=== PATIENT | male | born 1960 | race Caucasian/White ===

== ENCOUNTER → 2020-03-05 16:00 | Outpatient (CLI) | payer MEDICARE, MEDICAID, SELFPAY ==
[2020-03-08 12:11] LABS: COVID19 Sendout Not Detected (Not Detect)
== END ==
PROVIDERS: Visit Provider Physician Assistant
DX: Z11.59 Encounter for screening for other viral diseases (principal)
CPT/HCPCS: 87635

== ENCOUNTER 2020-03-08 06:37 | Day surgery (SDC) | payer MEDICARE, MEDICAID, SELFPAY ==
[2020-03-08 07:14] VITALS: BP 149/83; PULSE 87; RESP 16; TEMP 36.6; O2SAT 98; BMI 25.7
[2020-03-08] MEDS: CATARACT EYE COMPOUND (10 DROPS/SYRINGE) 3 DROPS EYE-OP (07:18)
[2020-03-08] MEDS: PROPARACAINE 0.5% OPHTH SOL 2 DROPS EYE-OP (07:18)
[2020-03-08 08:09] LABS: COVID19 -Nasal RAPID Negative (Negative)
--- NOTE | 2020-03-08 08:52 | P.OP_ITS ---
Operative Date/Time/Diagnoses Pre-op diagnosis: Nuclear Cataract Left eye Post-op diagnosis: same Procedure & Clinicians Same procedure as scheduled: Yes Surgeon: Beny Gallegos Anesthesia Type: MAC +/- and Sedation Operative Notes Procedure in detail: Patient brought to the operating suite. Tetracaine drops placed in the left eye. Patient was prepped and draped in sterile manner. Wire lid speculum was placed in the eye. Betadine drops were placed on the eye. This was irrigated. Lidocaine jelly was placed on the eye. A paracentesis port was created with a side-port blade. 0.1 mL 1% preservative free lidocaine was injected into the anterior chamber. The anterior chamber was deepened with viscoelastic. 2.6 mm keratome was used to create a temporal clear corneal incision. Cystotome and Utrata forceps were used to create continuous tear capsulorrhexis. Balanced salt solution was used to hydro dissect the nucleus. The phacoemulsification handpiece was inserted and the nucleus was removed using the stop and chop technique. The irrigation aspiration handpiece was inserted and the remaining cortex was removed. Anterior chamber was deepened with viscoe lastic. An Roa ZCB00 intraocular lens with a power of 19.0 was injected into the capsular bag. Irrigation aspiration handpiece was inserted and the remaining viscoelastic was removed. Incision was hydrated with balanced salt solution and found to be leak free with pressure with Weck-Alexandrea sponges. 0.1 mL Vigamox injected anterior chamber. 0.3 mL Kenalog 10 mg was injected subconjunctivally. Lid speculum was removed. The patient left the operating room in excellent condition. Complications: none Post-operative Condition: stable Disposition: same day surgery
--- NOTE | 2020-03-08 08:52 | PM.PREOP ---
Pre-operative Note Interval Note History & Physical reviewed/Exam performed by Physician: Yes Changes to H&P: No
[2020-03-08] MEDS: LIDOCAINE JELLY 2% 5 ML 1 APPLIC TOP (09:08)
[2020-03-08] MEDS: CHONDROIDTIN/SOD HYALURONATE 1.05 ML SYRINGE INTRAOCULA (09:08)
[2020-03-08] MEDS: TRIAMCINOLONE 50 MG/5 ML VIAL INJ (09:09)
[2020-03-08] MEDS: PHENYLEPHRINE/LIDOCAINE VIAL (OR) 0.2 ML EYE-OP (09:09)
[2020-03-08] MEDS: MOXIFLOXACIN INJ 5 MG/ML VIAL EYE-OP (09:09)
[2020-03-08] MEDS: TETRACAINE 0.5% OPHTH DROPS 4 ML 2 DROPS EYE-OP (09:10)
[2020-03-08] MEDS: BALANCED SALT IRRIG SOLN NO.2 500 ML, EPINEPHrine 1 MG IRR (09:10)
[2020-03-08 09:29] VITALS: BP 124/75; PULSE 74; RESP 14; TEMP 37; O2SAT 98
[2020-03-08 09:56] VITALS: BP 128/76; PULSE 73; RESP 14; O2SAT 98
== END 2020-03-08 10:00 | disposition home or self-care (01) ==
PROVIDERS: Referring Provider Ophthalmology; Visit Provider Ophthalmology
PROC: (CPT 66984; principal; 2020-03-08 07:45)
DX: H25.12 Age-related nuclear cataract, left eye (principal); Z11.59 Encounter for screening for other viral diseases
CPT/HCPCS: 66984; 87635; J0171; J2250; J3301

== ENCOUNTER → 2020-03-19 10:39 | Outpatient (CLI) | payer MEDICARE, MEDICAID, SELFPAY ==
[2020-03-20 16:13] LABS: COVID19 Sendout Not Detected (Not Detect)
== END ==
PROVIDERS: Visit Provider Physician Assistant
DX: Z11.59 Encounter for screening for other viral diseases (principal)
CPT/HCPCS: 87635

== ENCOUNTER 2020-03-22 06:35 | Day surgery (SDC) | payer MEDICARE, MEDICAID, SELFPAY ==
[2020-03-22] MEDS: PROPARACAINE 0.5% OPHTH SOL 2 DROPS EYE-OP (07:14)
[2020-03-22] MEDS: CATARACT EYE COMPOUND (10 DROPS/SYRINGE) 3 DROPS EYE-OP (07:15)
[2020-03-22 07:23] VITALS: BP 149/87; PULSE 81; RESP 16; TEMP 36.3; O2SAT 97; BMI 25.7
--- NOTE | 2020-03-22 07:36 | PM.PREOP ---
Pre-operative Note Interval Note History & Physical reviewed/Exam performed by Physician: Yes Changes to H&P: No
--- NOTE | 2020-03-22 07:36 | PM.OP.1 ---
Operative Date/Time/Diagnoses Pre-op diagnosis: Nuclear cataract right eye Procedure & Clinicians Procedure: Cataract Surgery Same procedure as scheduled: Yes Surgeon: Beny Gallegos Anesthesia Type: MAC +/- and Sedation Operative Notes Procedure in detail: Patient brought to the operating suite. Tetracaine drops placed in the right eye. Patient was prepped and draped in sterile manner. Wire lid speculum was placed in the eye. Betadine drops were placed on the eye. This was irrigated. Lidocaine jelly was placed on the eye. A paracentesis port was created with a side-port blade. 0.1 mL 1% preservative free lidocaine was injected into the anterior chamber. The anterior chamber was deepened with viscoelastic. 2.6 mm keratome was used to create a temporal clear corneal incision. Cystotome and Utrata forceps were used to create continuous tear capsulorrhexis. Balanced salt solution was used to hydro dissect the nucleus. The phacoemulsification handpiece was inserted and the nucleus was removed using the stop and chop technique. The irrigation aspiration handpiece was inserted and the remaining cortex was removed. Anterior chamber was deepened with viscoelastic. An Roa ZCB00 intraocular lens with a power of 20.0 was injected into the capsular bag. Irrigation aspiration handpiece was inserted and the remaining viscoelastic was removed. Incision was hydrated with balanced salt solution and found to be leak free with pressure with Weck-Alexandrea sponges. 0.1 mL Vigamox injected anterior chamber. 0.3 mL Kenalog 10 mg was injected subconjunctivally. Lid speculum was removed. The patient left the operating room in excellent condition. Complications: none Post-operative Condition: stable Disposition: same day surgery
[2020-03-22] MEDS: MOXIFLOXACIN INJ 5 MG/ML VIAL EYE-OP (07:58)
[2020-03-22] MEDS: CHONDROIDTIN/SOD HYALURONATE 1.05 ML SYRINGE INTRAOCULA (07:58)
[2020-03-22] MEDS: LIDOCAINE JELLY 2% 5 ML 1 APPLIC TOP (07:58)
[2020-03-22] MEDS: PHENYLEPHRINE/LIDOCAINE VIAL (OR) 0.2 ML EYE-OP (07:59)
[2020-03-22] MEDS: TRIAMCINOLONE 50 MG/5 ML VIAL INJ (07:59)
[2020-03-22] MEDS: BALANCED SALT IRRIG SOLN NO.2 500 ML, EPINEPHrine 1 MG IRR (07:59)
[2020-03-22] MEDS: TETRACAINE 0.5% OPHTH DROPS 4 ML 2 DROPS EYE-OP (07:59)
[2020-03-22 08:12] VITALS: BP 118/74; PULSE 76; RESP 12; TEMP 36.7; O2SAT 98
== END 2020-03-22 08:25 | disposition home or self-care (01) ==
PROVIDERS: Referring Provider Ophthalmology; Visit Provider Ophthalmology
PROC: (CPT 66984; principal; 2020-03-22 07:45)
DX: H25.11 Age-related nuclear cataract, right eye (principal); E11.9 Type 2 diabetes mellitus without complications; F17.210 Nicotine dependence, cigarettes, uncomplicated
CPT/HCPCS: 66984; J0171; J2250; J3301

== ENCOUNTER 2021-05-18 13:49 | Emergency (ER) | payer MEDICARE, MEDICAID, SELFPAY ==
[2021-05-18 14:02] VITALS: BP 161/99; PULSE 78; RESP 16; TEMP 36.5; O2SAT 100; BMI 25.7
== END 2021-05-18 17:27 | disposition left against medical advice (07) ==
PROVIDERS: Emergency Provider Emergency Medicine
DX: K08.89 Other specified disorders of teeth and supporting structures (principal)
CPT/HCPCS: 99281

== ENCOUNTER 2021-05-19 10:40 | Emergency (ER) | payer MEDICARE, MEDICAID, SELFPAY ==
[2021-05-19 10:52] VITALS: BP 140/79; PULSE 94; RESP 20; TEMP 36.6; O2SAT 100
[2021-05-19] MEDS: IBUPROFEN 400 MG TABLET 800 MG PO (10:59)
[2021-05-19] MEDS: ACETAMINOPHEN 325 MG TABLET 975 MG PO (10:59)
--- NOTE | 2021-05-19 13:10 | ED.DENTAL ---
HPI - Dental/Oral General Chief complaint: Dental/Oral Stated complaint: bad tooth ache Time Seen by Provider: 05/19/21 12:52 Source: patient Mode of arrival: Ambulatory Limitations: no limitations History of Present Illness HPI Narrative: The patient developed right upper dental pain about 1 week ago. The pain has spread throughout his upper gum. He has mild swelling to his upper lip. He has no lower dental pain. He has right anterior neck pain. He denies dysphagia or sore throat. He denies fever chills. He has no chest pain. He is a smoker. He has a history of dental problems. He has no headache, sore throat, cough or dyspnea Related Data Previous Rx's Medication Instructions Recorded amoxicillin 500 mg capsule 500 mg PO TID 10 Days #30 cap 05/19/21 Allergies Allergy/AdvReac Type Severity Reaction Status Date / Time No Known Drug Allergies Allergy Verified 05/19/21 10:55 Review of Systems Review of Systems ROS Unobtainable: All systems reviewed & are unremarkable except as noted in HPI and below Patient History Social History household members: none Smoking Status: Current every day smoker alcohol intake: current Smoking Status: Current every day smoker alcohol intake frequency: a few times a month Substance Use Type: marijuana Exam Initial Vital Signs Initial Vital Signs: Vital Signs Temperature 97.8 F 05/19/21 10:52 Pulse Rate 94 H 05/19/21 10:52 Respiratory Rate 20 05/19/21 10:52 Blood Pressure 140/79 05/19/21 10:52 Pulse Oximetry 100 05/19/21 10:52 Const General: cooperative, healthy appearing and comfortable [facility] Head: other (Slight edema to the upper lip.) Face and sinus: sinuses nontender Mouth: tongue normal, oropharynx normal and other (Gingivitis in his upper gum. Dental abscess at tooth 8.) Throat: posterior oropharynx normal Cardio Rate: regular rate Rhythm: regular rhythm Heart Sounds: S1 normal, S2 normal and no murmurs Course Course Course Narrative: The patient has gingivitis as well as a visible abscess at tooth 8. He has no significant facial edema. He has started amoxicillin. He is advised to follow-up with a dentist. Orders Ordered: Discontinued Medications Acetaminophen (Acetaminophen 325 Mg Tablet) 975 mg PO NOW ONE Stop: 05/19/21 10:57 Last Admin: 05/19/21 10:59 Dose: 975 mg Documented by: FEDERICA Ibuprofen (Ibuprofen 400 Mg Tablet) 800 mg PO NOW ONE Stop: 05/19/21 10:57 Last Admin: 05/19/21 10:59 Dose: 800 mg Documented by: FEDERICA Vital Signs Vital signs: Vital Signs - 8 hr 05/19/21 10:52 Temperature 97.8 F Pulse Rate 94 H Respiratory Rate 20 Blood Pressure 140/79 Pulse Oximetry 100 Discharge Plan Departure Patient Disposition: Home Clinical Impression: Dental abscess, Acute gingivitis Instructions: Tooth Abscess Activity Restrictions/Additional Instructions: Aleve 2 tablets 2 times daily as needed for pain. Amoxicillin 3 times daily for 10 days. The prescription has been forwarded to your pharmacy. I would recommend follow-up with a dentist in 2-3 weeks. Return as needed. Prescriptions: New amoxicillin 500 mg capsule 500 mg PO TID 10 Days Qty: 30 0RF
[2021-05-19] MEDS: AMOXICILLIN 250 MG CAPSULE 500 MG PO (13:18)
== END 2021-05-19 13:23 | disposition home or self-care (01) ==
PROVIDERS: Emergency Provider Emergency Medicine
DX: K04.7 Periapical abscess without sinus (principal); K05.00 Acute gingivitis, plaque induced
CPT/HCPCS: 99283

== ENCOUNTER 2022-03-30 17:47 | Emergency (ER) | payer MEDICARE, MEDICAID, SELFPAY ==
[2022-03-30] VITALS (7 sets, daily range): BP systolic 119–164; BP diastolic 67–80; PULSE 85–100; RESP 22; TEMP 37.7; O2SAT 96–99; BMI 25.7
--- NOTE | 2022-03-30 18:02 | DI.RAD.S_ITS ---
PROCEDURE: XR CHEST 1V INDICATIONS: suspected sepsis TECHNIQUE: One view of the chest was acquired. COMPARISON: None. FINDINGS: Surgical changes and devices: None. Lungs and pleura: Lungs are clear. No pleural effusions or pneumothorax. Mediastinum: Mediastinal contours appear normal. Heart size is normal. Bones and chest wall: No suspicious bony lesions. Overlying soft tissues appear unremarkable. IMPRESSION: No acute cardiopulmonary abnormality. Dictated by: Refugio Chong M.D. on 03/30/2022 at 20:13 Approved by: Refugio Chong M.D. on 03/30/2022 at 20:13
--- NOTE | 2022-03-30 18:13 | DI.RAD.S_ITS ---
PROCEDURE: XR TIBIA FUBULA RT 2V INDICATIONS: wound, infection, cut on beach TECHNIQUE: 2 views of the tibia and fibula were acquired. COMPARISON: None. FINDINGS: Bones: No fractures or dislocations. No suspicious bony lesions. Soft tissues: No suspicious soft tissue calcifications or masses. No radiopaque foreign body is identified. Trace calcification at the interosseous membrane versus vascular calcifications. IMPRESSION: No acute osseous abnormality. Dictated by: Refugio Chong M.D. on 03/30/2022 at 20:13 Approved by: Refugio Chong M.D. on 03/30/2022 at 20:14
--- NOTE | 2022-03-30 18:32 | ED.WOUNDLAC ---
HPI - Wound/Laceration <Bala Murguia PA-C - Last Filed: 03/30/22 20:25> General Chief Complaint: Wound/Laceration Stated Complaint: R foot pain, changing colors, swollen, infected Time Seen by Provider: 03/30/22 18:18 Source: patient Mode of arrival: Family Vehicle History of Present Illness HPI narrative: The patient is a 61-year-old male who presents to the emergency room today with complaint of right-sided lower middle ankle pain that started on Saturday last week. Admits to current his ankle while on vacation in [place] on Saturday or Saturday. States that he noticed swelling on Saturday and it has increased with the ankle is very painful right now he can barely walk on it. Denies any chest pain shortness of breath fever or vomiting. Does state he has had some nausea. Has not taken any pain medicine or antibiotics within condition at this time. Related Data Previous Rx's Medication Instructions Recorded doxycycline hyclate 100 mg tablet 100 mg PO BID #14 tabs 03/30/22 doxycycline hyclate 100 mg tablet 100 mg PO BID 7 days #14 tabs 03/30/22 Allergies Allergy/AdvReac Type Severity Reaction Status Date / Time No Known Drug Allergies Allergy Verified 03/30/22 18:01 Review of Systems <Bala Murguia PA-C - Last Filed: 03/30/22 20:25> Review of Systems Narrative: R.O.S.: General: No fever, chills or fatigue. Cardiovascular: No chest pain or palpitations Respiratory: No S.O.B. HEENT: No congestion, ear pain, rhinorrhea, sore throat or tinnitus Gastrointestinal: No nausea or vomiting : No urinary concerns Skin: And swelling to the right ankle. Musculoskeletal: No pain in muscles or joints, no limitation of range of motion, no paresthesia or numbness. ?? Neurological: Awake, alert and in not apparent distress. No Headaches, changes in vision or other related neurological concerns. Patient History <Bala Murguia PA-C - Last Filed: 03/30/22 20:25> Social History household members: none Smoking Status: Current every day smoker alcohol intake: current Smoking Status: Current every day smoker alcohol intake frequency: a few times a month Substance Use Type: marijuana Exam <Bala Murguia PA-C - Last Filed: 03/30/22 20:25> Narrative Exam Narrative: Physical Exam: ? General: normal appearance, well developed, well nourished, alert, and awake. Not in acute distress. ? Head: Normocephalic, no lesions. Chest: Lungs CTAB, no rales, rhonchi or wheezes. ?? Heart: RRR, no murmurs, rubs or gallops. Eyes: PERRLA, EOM's full, conjunctivae clear. ? Neuro: Physiological, no localizing findings, CN3-12 intact. ?? Extremities: Warm, well perfused, FROM, no deformities, no edema. ?? Skin: Patient has swelling erythema and tenderness to the right medial malleolus area. ?The ankle area has erythema to his extend from the medial malleoli area to the proximal 1st and 2nd metatarsal area. The erythema and tenderness also extends to the inferior malleolar area proximal to the arch. Erythema swelling also extends the posterior malleolar area. PSYCHIATRIC: The mood is good, no blunted affect. Speech is clear. Thought process is linear, thought content is appropriate. The voice is without significant inflection. Gastrointestinal: Soft; NT; ND; Pos BS with Neg. rebound tenderness. No scars or major deformities noted on Visual Inspection. Initial Vital Signs Initial Vital Signs: Vital Signs Temperature 99.9 F H 03/30/22 17:57 Pulse Rate 100 H 03/30/22 17:57 Respiratory Rate 22 03/30/22 17:57 Blood Pressure 119/67 03/30/22 17:57 Pulse Oximetry 99 03/30/22 17:57 Oxygen Delivery Method 03/30/22 17:57 <Brian Durand DO - Last Filed: 03/30/22 22:36> Initial Vital Signs Initial Vital Signs: Vital Signs Temperature 99.9 F H 03/30/22 17:57 Pulse Rate 100 H 03/30/22 17:57 Respiratory Rate 22 03/30/22 17:57 Blood Pressure 119/67 03/30/22 17:57 Pulse Oximetry 99 03/30/22 17:57 Oxygen Delivery Method 03/30/22 17:57 Course <Bala Murguia PA-C - Last Filed: 03/30/22 20:25> Orders Ordered: ED Orders 03/30/22 18:02 XR chest 1V Stat RT Consult Eval and Treat NOW 03/30/22 18:13 XR tibia fibula RT 2V Stat 03/30/22 18:50 Complete Blood Count AUTO DIFF Stat Comprehensive Metabolic Panel Stat Lactate (Lactic Acid) Stat Lipase Stat Procalcitonin Stat 03/30/22 19:01 EKG-12 Lead Stat 03/30/22 19:45 Blood Culture Stat Discontinued Medications Sodium Chloride (Normal Saline 0.9%) 1,000 mls @ 1,000 mls/hr IV BOLUS ONE Stop: 03/30/22 19:01 Last Infusion: 03/30/22 20:40 Dose: 0 mls/hr Documented By: Admin: 03/30/22 19:17 Dose: 1,000 mls/hr Documented By: DELROY Ketorolac Tromethamine (Ketorolac 30 Mg/Ml Vial) 30 mg IV NOW ONE Stop: 03/30/22 18:29 Last Admin: 03/30/22 19:12 Dose: 30 mg Documented By: DELROY Vital Signs Vital signs: Vital Signs - 8 hr 03/30/22 17:57 03/30/22 18:51 03/30/22 18:52 Temperature 99.9 F H Pulse Rate 100 H 91 H Respiratory Rate 22 Blood Pressure 119/67 136/73 Pulse Oximetry 99 99 Oxygen Delivery Method Room Air Room Air 03/30/22 19:00 03/30/22 19:00 03/30/22 19:30 Temperature Pulse Rate 92 H Respiratory Rate Blood Pressure 132/74 144/74 H Pulse Oximetry 96 Oxygen Delivery Method Room Air 03/30/22 19:30 03/30/22 20:00 03/30/22 20:00 Temperature Pulse Rate 88 88 Respiratory Rate Blood Pressure 151/72 H Pulse Oximetry 97 98 Oxygen Delivery Method Room Air 03/30/22 20:30 03/30/22 20:30 Temperature Pulse Rate 85 Respiratory Rate Blood Pressure 164/80 H Pulse Oximetry 99 Oxygen Delivery Method Room Air <Brian Durand DO - Last Filed: 03/30/22 22:36> Orders Ordered: ED Orders 03/30/22 18:02 XR chest 1V Stat RT Consult Eval and Treat NOW 03/30/22 18:13 XR tibia fibula RT 2V Stat 03/30/22 18:50 Complete Blood Count AUTO DIFF Stat Comprehensive Metabolic Panel Stat Lactate (Lactic Acid) Stat Lipase Stat Procalcitonin Stat 03/30/22 19:01 EKG-12 Lead Stat 03/30/22 19:45 Blood Culture Stat Discontinued Medications Sodium Chloride (Normal Saline 0.9%) 1,000 mls @ 1,000 mls/hr IV BOLUS ONE Stop: 03/30/22 19:01 Last Infusion: 03/30/22 20:40 Dose: 0 mls/hr Documented By: Admin: 03/30/22 19:17 Dose: 1,000 mls/hr Documented By: DELROY Ketorolac Tromethamine (Ketorolac 30 Mg/Ml Vial) 30 mg IV NOW ONE Stop: 03/30/22 18:29 Last Admin: 03/30/22 19:12 Dose: 30 mg Documented By: DELROY Vital Signs Vital signs: Vital Signs - 8 hr 03/30/22 17:57 03/30/22 18:51 03/30/22 18:52 Temperature 99.9 F H Pulse Rate 100 H 91 H Respiratory Rate 22 Blood Pressure 119/67 136/73 Pulse Oximetry 99 99 Oxygen Delivery Method Room Air Room Air 03/30/22 19:00 03/30/22 19:00 03/30/22 19:30 Temperature Pulse Rate 92 H Respiratory Rate Blood Pressure 132/74 144/74 H Pulse Oximetry 96 Oxygen Delivery Method Room Air 03/30/22 19:30 03/30/22 20:00 03/30/22 20:00 Temperature Pulse Rate 88 88 Respiratory Rate Blood Pressure 151/72 H Pulse Oximetry 97 98 Oxygen Delivery Method Room Air 03/30/22 20:30 03/30/22 20:30 Temperature Pulse Rate 85 Respiratory Rate Blood Pressure 164/80 H Pulse Oximetry 99 Oxygen Delivery Method Room Air MDM - Wound/Laceration <Bala Murguia PA-C - Last Filed: 03/30/22 20:25> Lab Data Result diagrams: 03/30/22 18:50 03/30/22 18:50 Labs: Lab Results 03/30/22 03/30/22 03/30/22 Range/Units 18:50 18:50 18:50 WBC 14.4 H (4.5-11.0) X10^3/uL RBC 4.54 (4.5-5.9) X10^6/uL Hgb 13.9 (13.5-17.5) g/dL Hct 41.6 (41-53) % MCV 91.6 (80-100) fL MCH 30.6 (26-34) PG MCHC 33.4 (30-36) % RDW 14.8 (11.6-14.8) % Plt Count 187 (150-400) X10^3/uL Neut % (Auto) 81.3 H (50-75) % Lymph % (Auto) 10.4 L (25-40) % Bradford % (Auto) 7.7 (3-14) % Eos % (Auto) 0.1 L (2-4) % Baso % (Auto) 0.5 (0-2) % Neut # (Auto) 12923 H (0767-4801) /uL Lymph # (Auto) 1500 (7198-4359) /uL Bradford # (Auto) 1100 H (0-900) /uL Eos # (Auto) 0 (0-450) /uL Baso # (Auto) 100 (0-100) /uL Sodium 136 L (137-145) mmol/L Potassium 3.9 (3.4-5.1) mmol/L Chloride 101 (98-107) mmol/L Carbon Dioxide 26 (22-32) mmol/L BUN 8 L (9-20) mg/dL Creatinine 0.82 (0.66-1.25) mg/dL Estimated GFR > 60 (>60) mL/min BUN/Creatinine Ratio 9.8 (6-22) Glucose 144 H (80-110) mg/dL Lactate 1.0 (0.7-2.1) mmol/L Calcium 8.9 (8.4-10.2) mg/dL Total Bilirubin 1.3 (0.2-1.3) mg/dL AST 18 (17-59) IU/L ALT 12 (<50) IU/L Alkaline Phosphatase 90 (38-126) U/L Total Protein 7.4 (6.3-8.2) g/dL Albumin 4.0 (3.5-5.0) g/dL Globulin 3.4 (1.7-4.1) g/dL Albumin/Globulin Ratio 1.2 (1.0-2.8) Lipase 37 (23-300) U/L Procalcitonin 0.07 (<0.5) ng/mL Imaging Data Chest x-ray: Radiologist's Impression: PROCEDURE:? XR CHEST 1V ? INDICATIONS:? suspected sepsis ? TECHNIQUE:? One view of the chest was acquired.? ? COMPARISON:? None. ? FINDINGS:? ? Surgical changes and devices:? None.? ? Lungs and pleura:? Lungs are clear.? No pleural effusions or pneumothorax.? ? Mediastinum:? Mediastinal contours appear normal.? Heart size is normal.? ? Bones and chest wall:? No suspicious bony lesions.? Overlying soft tissues appear unremarkable.? ? IMPRESSION:? No acute cardiopulmonary abnormality. ? ? ? Dictated by: Refugio Chong M.D. on 03/30/2022 at 20:13 ? ? Approved by: Refugio Chong M.D. on 03/30/2022 at 20:13 ? Extremity x-ray #1: Radiologist's Impression: PROCEDURE:? XR TIBIA FUBULA RT 2V ? INDICATIONS:? wound, infection, cut on beach ? TECHNIQUE:? 2 views of the tibia and fibula were acquired.? ? COMPARISON:? None. ? FINDINGS:? ? Bones:? No fractures or dislocations.? No suspicious bony lesions.? ? Soft tissues:? No suspicious soft tissue calcifications or masses.? No radiopaque foreign body is identified.? Trace calcification at the interosseous membrane versus vascular calcifications. ? IMPRESSION:? No acute osseous abnormality. ? ? Dictated by: Refugio Chong M.D. on 03/30/2022 at 20:13 ? ? Approved by: Refugio Chong M.D. on 03/30/2022 at 20:14 ? MDM Narrative Medical decision making narrative: Patient is 7-year-old male who presents to the emergency room today with complaint of pain redness and swelling to his right ankle this started after cutting his ankle while vacationing in [facility] last week. Labs ordered to rule out blood infection or any other urgent emergent concerns. WBC was elevated to 14. Other labs were not positive for gross urgent emergent concerns at this time. All X-rays of right lower extremity and shortness chest film were also negative any emergent concern. Discussed cellulitis abscess and in other emergency concerns patient. Antibiotics are at patient advised to return should any emergent well arise. <Brian Lanker, DO - Last Filed: 03/30/22 22:36> Lab Data Labs: Lab Results 03/30/22 03/30/22 03/30/22 Range/Units 18:50 18:50 18:50 WBC 14.4 H (4.5-11.0) X10^3/uL RBC 4.54 (4.5-5.9) X10^6/uL Hgb 13.9 (13.5-17.5) g/dL Hct 41.6 (41-53) % MCV 91.6 (80-100) fL MCH 30.6 (26-34) PG MCHC 33.4 (30-36) % RDW 14.8 (11.6-14.8) % Plt Count 187 (150-400) X10^3/uL Neut % (Auto) 81.3 H (50-75) % Lymph % (Auto) 10.4 L (25-40) % Bradford % (Auto) 7.7 (3-14) % Eos % (Auto) 0.1 L (2-4) % Baso % (Auto) 0.5 (0-2) % Neut # (Auto) 15794 H (0081-1752) /uL Lymph # (Auto) 1500 (0001-2661) /uL Bradford # (Auto) 1100 H (0-900) /uL Eos # (Auto) 0 (0-450) /uL Baso # (Auto) 100 (0-100) /uL Sodium 136 L (137-145) mmol/L Potassium 3.9 (3.4-5.1) mmol/L Chloride 101 (98-107) mmol/L Carbon Dioxide 26 (22-32) mmol/L BUN 8 L (9-20) mg/dL Creatinine 0.82 (0.66-1.25) mg/dL Estimated GFR > 60 (>60) mL/min BUN/Creatinine Ratio 9.8 (6-22) Glucose 144 H (80-110) mg/dL Lactate 1.0 (0.7-2.1) mmol/L Calcium 8.9 (8.4-10.2) mg/dL Total Bilirubin 1.3 (0.2-1.3) mg/dL AST 18 (17-59) IU/L ALT 12 (<50) IU/L Alkaline Phosphatase 90 (38-126) U/L Total Protein 7.4 (6.3-8.2) g/dL Albumin 4.0 (3.5-5.0) g/dL Globulin 3.4 (1.7-4.1) g/dL Albumin/Globulin Ratio 1.2 (1.0-2.8) Lipase 37 (23-300) U/L Procalcitonin 0.07 (<0.5) ng/mL Discharge Plan Departure Patient Disposition: Home Clinical Impression: Cellulitis, Cellulitis and abscess of left leg Instructions: DI for Cellulitis -- Adult Activity Restrictions/Additional Instructions: *You have been diagnosed with cellulitis of your right lower leg. Have ordered antibiotics to help with the infection and suggest she take antibiotics as ordered. I also advised to return to the emergency room should the infection worsens after taking antibiotics the next 2-3 days; if you develop a fever above 101 or any other emergent concerns arise. [ ] *What to do: *Please continue to take your regular medications as directed. [ ] New medication prescriptions sent to your pharmacy: [ ] [x] New medication written as a paper prescription [ ] No new medications given *Please follow up with your primary care provider in 2-3 days, call for an appointment. Let them know you were seen in the Emergency Department and that we ask that you be seen in follow up. We will electronically transmit a record of today's note if your PCP is in our system *If you do not have a primary care provider please contact the [facility] Resource line at [phone]. They will ask some questions about your medical history and help get you set up with a doctor in the community. *Return to Emergency Department if you should have any new, worsening or concerning symptoms, such as [fever greater than 101 F, shaking chills, worsening pain, persistent vomiting or other bothersome symptoms] Prescriptions: New doxycycline hyclate 100 mg tablet 100 mg PO BID Qty: 14 0RF doxycycline hyclate 100 mg tablet 100 mg PO BID 7 Days Qty: 14 0RF Visit Report Forms: Patient Portal/API <Brian Durand, DO - Last Filed: 03/30/22 22:36> Cosign ED Attending Cosignature Attestation: Dr Durand Co-Sign Statement: I was available for consultation during this patient's emergency department visit. This chart is signed by myself for administrative purposes only. I did not have direct contact with this patient during this visit. They were seen independently by the APC.
[2022-03-30 19:02] LABS: Add Manual Diff / Slide Review NO; Basophils Absolute Auto 100 /uL (0-100); Basophils Percent Auto 0.5 % (0-2); Eosinophils Absolute Auto 0 /uL (0-450); Eosinophils Percent Auto 0.1 % (2-4); Hematocrit 41.6 % (41-53); Hemoglobin 13.9 g/dL (13.5-17.5); Lymphocytes Absolute Auto 1500 /uL (1100-4500); Lymphocytes Percent Auto 10.4 % (25-40); Mean Corpuscular HGB Conc 33.4 % (30-36); Mean Corpuscular Hemoglobin 30.6 PG (26-34); Mean Corpuscular Volume 91.6 fL (80-100); Monocytes Absolute Auto 1100 /uL (0-900); Monocytes Percent Auto 7.7 % (3-14); Neutrophils Absolute Auto 11700 /uL (1500-7000); Neutrophils Percent Auto 81.3 % (50-75); Platelet Count 187 X10^3/uL (150-400); Red Blood Cell Count 4.54 X10^6/uL (4.5-5.9); Red Cell Distribution Width 14.8 % (11.6-14.8); White Blood Cell Count 14.4 X10^3/uL (4.5-11.0)
[2022-03-30 19:12] LABS: Alanine Aminotransferase 12 IU/L (<50); Albumin Globulin Ratio 1.2 (1.0-2.8); Alkaline Phosphatase 90 U/L (38-126); Aspartate Aminotransferase 18 IU/L (17-59); BUN Creatinine Ratio 9.8 (6-22); Bilirubin Total 1.3 mg/dL (0.2-1.3); Blood Urea Nitrogen 8 mg/dL (9-20); Calcium 8.9 mg/dL (8.4-10.2); Carbon Dioxide 26 mmol/L (22-32); Chloride 101 mmol/L (98-107); Estimated Glomerular Filt Rate > 60 mL/min (>60); Globulin 3.4 g/dL (1.7-4.1); Glucose 144 mg/dL (80-110); HEMOLYSIS < 15 (0-50); Lipase 37 U/L (23-300); Potassium 3.9 mmol/L (3.4-5.1); Sodium 136 mmol/L (137-145); Total Protein 7.4 g/dL (6.3-8.2)
[2022-03-30] MEDS: KETOROLAC 30 MG/ML VIAL IV (19:12)
[2022-03-30] MEDS: SODIUM CHLORIDE 0.9% 1,000 ML 1000 ML IV (19:17)
[2022-03-30 19:29] LABS: Procalcitonin 0.07 ng/mL (<0.5)
== END 2022-03-30 20:40 | disposition home or self-care (01) ==
PROVIDERS: Emergency Medicine; Emergency Provider Physician Assistant
DX: L03.115 Cellulitis of right lower limb (principal); W45.8XXA Other foreign body or object entering through skin, initial encounter; R11.0 Nausea
CPT/HCPCS: 36415; 71045; 73590; 80053; 83605; 83690; 84145; 85025; 87040; 93005; 96361; 96374; 99284; J1885

== ENCOUNTER 2022-04-19 14:53 | Emergency (ER) | payer MEDICARE, MEDICAID, SELFPAY ==
[2022-04-19 14:57] VITALS: BP 146/82; PULSE 94; RESP 18; TEMP 35.7; O2SAT 100; BMI 25.7
[2022-04-19 15:42] LABS: Add Manual Diff / Slide Review NO; Basophils Absolute Auto 0 /uL (0-100); Basophils Percent Auto 0.5 % (0-2); Eosinophils Absolute Auto 100 /uL (0-450); Eosinophils Percent Auto 1.4 % (2-4); Hematocrit 39.2 % (41-53); Hemoglobin 13.2 g/dL (13.5-17.5); Lymphocytes Absolute Auto 2500 /uL (1100-4500); Lymphocytes Percent Auto 26.8 % (25-40); Mean Corpuscular HGB Conc 33.6 % (30-36); Mean Corpuscular Hemoglobin 30.4 PG (26-34); Mean Corpuscular Volume 90.4 fL (80-100); Monocytes Absolute Auto 700 /uL (0-900); Monocytes Percent Auto 7.3 % (3-14); Neutrophils Absolute Auto 6000 /uL (1500-7000); Platelet Count 249 X10^3/uL (150-400); Red Blood Cell Count 4.33 X10^6/uL (4.5-5.9); Red Cell Distribution Width 15.2 % (11.6-14.8); White Blood Cell Count 9.3 X10^3/uL (4.5-11.0)
[2022-04-19 15:50] LABS: Lactate (Lactic Acid) 2.3 mmol/L (0.7-2.1)
[2022-04-19 15:51] LABS: Alanine Aminotransferase 21 IU/L (<50); Albumin 4.1 g/dL (3.5-5.0); Albumin Globulin Ratio 1.1 (1.0-2.8); Alkaline Phosphatase 82 U/L (38-126); Aspartate Aminotransferase 23 IU/L (17-59); BUN Creatinine Ratio 18.7 (6-22); Bilirubin Total 0.3 mg/dL (0.2-1.3); Blood Urea Nitrogen 14 mg/dL (9-20); Calcium 9.3 mg/dL (8.4-10.2); Carbon Dioxide 25 mmol/L (22-32); Chloride 103 mmol/L (98-107); Estimated Glomerular Filt Rate > 60 mL/min (>60); Globulin 3.8 g/dL (1.7-4.1); Glucose 120 mg/dL (80-110); HEMOLYSIS 16 (0-50); Potassium 3.9 mmol/L (3.4-5.1); Sodium 140 mmol/L (137-145); Total Protein 7.9 g/dL (6.3-8.2)
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
[2022-04-19 16:40] LABS: Procalcitonin 0.04 ng/mL (<0.5)
--- NOTE | 2022-04-19 16:46 | DI.RAD.S_ITS ---
PROCEDURE: XR ANKLE RT MIN 3V INDICATIONS: R ankle wound r/o osteo TECHNIQUE: 3 views of the ankle were acquired. COMPARISON: [facility], CR, XR TIBIA FIBULA RT 2V, 03/30/2022, 18:13. FINDINGS: Bones: No fractures or dislocations. No osseous erosion. No focal sclerosis. No periosteal reaction. Ankle mortise is normally aligned. No suspicious bony lesions. Soft tissues: No tibiotalar joint effusion. Achilles tendon appears normal. Arterial vascular calcifications. Wound superior to the medial malleolus, increased. IMPRESSION: No osteomyelitis demonstrated. Consider follow-up three-phase bone scan or MRI. Wound superior to the medial malleolus appears worsened. Dictated by: Refugio Chong M.D. on 04/19/2022 at 17:10 Approved by: Refugio Chong M.D. on 04/19/2022 at 17:12
[2022-04-19 17:31] LABS: C-Reactive Protein Quant 0.7 mg/dL (<1.0)
[2022-04-19 17:36] LABS: Reflexed Lactate in 2 Hours Y
[2022-04-19 18:03] VITALS: BP 163/82; PULSE 73; RESP 18; O2SAT 98
[2022-04-19 18:03] LABS: Erythrocyte Sedimentation Rate 17 MM/HR (0-15)
[2022-04-19 18:33] LABS: Lactate 2HR (Lactic Acid Rflx) 1.1 mmol/L (0.7-2.1)
== END 2022-04-19 18:18 | disposition home or self-care (01) ==
PROVIDERS: Emergency Medicine; Emergency Provider Physician Assistant Medical
DX: L08.9 Local infection of the skin and subcutaneous tissue, unspecified (principal)
CPT/HCPCS: 73610; 80053; 83605; 84145; 85025; 85651; 86140; 87040; 87070; 87075; 87077; 87147; 87186; 87205; 99282; 99284

== ENCOUNTER → 2022-04-30 13:48 | Outpatient (CLI) | payer MEDICARE, MEDICAID, SELFPAY | PROVIDERS: Referring Provider Physician Assistant Medical; Visit Provider Family Medicine | DX: S91.001A Unspecified open wound, right ankle, initial encounter (principal); B95.0 Streptococcus, group A, as the cause of diseases classified elsewhere; L08.89 Other specified local infections of the skin and subcutaneous tissue; Q82.8 Other specified congenital malformations of skin; R60.0 Localized edema; F17.210 Nicotine dependence, cigarettes, uncomplicated | CPT/HCPCS: 11042; 87070; 87075; 87205; 99204; 99214 ==

== ENCOUNTER → 2022-05-07 13:15 | Outpatient (CLI) | payer MEDICARE, MEDICAID, SELFPAY | PROVIDERS: Referring Provider Physician Assistant Medical; Visit Provider Family Medicine | DX: S91.001A Unspecified open wound, right ankle, initial encounter (principal); L08.89 Other specified local infections of the skin and subcutaneous tissue; R60.0 Localized edema | CPT/HCPCS: 11042 ==

== ENCOUNTER 2025-06-20 13:57 | Emergency (ER) | payer MEDICARE, MEDICAID, SELFPAY ==
[2025-06-20 14:01] VITALS: BP 156/77; PULSE 83; RESP 18; TEMP 36.4; O2SAT 99; BMI 25.7
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
--- NOTE | 2025-06-20 14:57 | ED.WOUNDLAC ---
HPI - Wound/Laceration General Chief Complaint: Wound/Laceration Stated Complaint: LT leg infection Time Seen by Provider: 06/20/25 14:15 Source: patient Mode of arrival: Ambulatory History of Present Illness HPI narrative: 64-year-old male presents with open wounds his right lower extremity that has been ongoing for the past few weeks. He denies any fever, chills, body aches, chest pain, shortness of breath, worsening leg pain, or swelling. Other than what is stated 14 point review of system is negative. Related Data Previous Rx's ?Medication ?Instructions ?Recorded doxycycline hyclate 100 mg tablet 100 mg PO BID #14 tabs 03/30/22 bacitracin 500 unit/gram topical 1 applic topical TID #14.2 grams 06/20/25 ointment doxycycline hyclate 100 mg capsule 100 mg PO BID #14 caps 06/20/25 Allergies Allergy/AdvReac Type Severity Reaction Status Date / Time No Known Drug Allergies Allergy Verified 03/30/22 18:01 Review of Systems Review of Systems ROS Unobtainable: All systems reviewed & are unremarkable except as noted in HPI and below Patient History Social History household members: none Smoking Status: Current every day smoker alcohol intake: current Smoking Status: Current every day smoker tobacco type: e-cigarettes alcohol intake frequency: a few times a month Exam Narrative Exam Narrative: GENERAL: [64] year old patient appears stated age. Well-developed patient, in mild distress. HEAD: Atraumatic. Normocephalic. EYES: Pupils equal round and reactive. Extraocular motions intact. No scleral icterus. No injection or drainage. ENT: Nose without bleeding, purulent drainage. Throat without erythema, tonsillar hypertrophy or exudate. Airway patent. NECK: Trachea midline. Non tender EXTREMITIES: Multiple right lower extremity open wounds of different sizes and shapes with no active drainage or bleeding. Mild soft tissue swelling no fluctuance surrounding cellulitis or streaking up the leg. Motor sensory intact 2 DP +2 PT cap refill less than 2 seconds BACK: Nontender without deformity or crepitance. No flank tenderness. NEURO: AOx3. SKIN: No rash or erythema of visible areas Initial Vital Signs Initial Vital Signs: Vital Signs Temperature 97.5 F L 06/20/25 14:01 Pulse Rate 83 06/20/25 14:01 Respiratory Rate 18 06/20/25 14:01 Blood Pressure 156/77 H 06/20/25 14:01 Pulse Oximetry 99 06/20/25 14:01 Oxygen Delivery Method Room Air 06/20/25 14:01 Course Orders Ordered: ED Orders 06/20/25 14:08 Consult to VISITOR SERVICE ASSISTANT - Road Passenger Firer Stat Vital Signs Vital signs: Vital Signs - 8 hr 06/20/25 14:01 Temperature 97.5 F L Pulse Rate 83 Respiratory Rate 18 Blood Pressure 156/77 H Pulse Oximetry 99 Oxygen Delivery Method Room Air MDM - Wound/Laceration MDM Narrative Medical decision making narrative: All lab work, vital signs, nurse triage note, medication list, previous ER visits, and all imaging studies reviewed. Differential diagnosis cellulitis abscess MRSA. Patient given topical bacitracin in doxycycline prescription Discharge Plan Departure Patient Disposition: Home Clinical Impression: Open wound Instructions: DI for Wound Infection Activity Restrictions/Additional Instructions: Return with new or worsening symptoms. Take your medicines as directed. Follow up with PCP in 1 week for wound recheck. Prescriptions: New doxycycline hyclate 100 mg capsule 100 mg PO BID Qty: 14 0RF bacitracin 500 unit/gram ointment 1 applic topical TID Qty: 14.2 0RF No Action doxycycline hyclate 100 mg tablet 100 mg PO BID Qty: 14 0RF Referrals: Miscellaneous,Doctor[facility] [Primary Care Provider, Medical] Stand Alone Forms: Patient Portal/API
[2025-06-20] MEDS: DOXYCYCLINE HYCLATE 100 MG TABLET PO (15:05)
[2025-06-20] MEDS: BACITRACIN OINT 0.9 GM PCKT 1 APPLIC TOP (15:06)
[2025-06-20 15:24] VITALS: BP 162/76; PULSE 68; RESP 18; O2SAT 99
== END 2025-06-20 15:26 | disposition home or self-care (01) ==
PROVIDERS: Emergency Provider Family Medicine
DX: S81.801A Unspecified open wound, right lower leg, initial encounter (principal); X58.XXXA Exposure to other specified factors, initial encounter
CPT/HCPCS: 99283